=== PATIENT | female | born 1985 | race Two or more races ===

== ENCOUNTER 2018-01-18 09:39 | Emergency (ER) | payer BC ==
[2018-01-18 09:47] VITALS: BP 99/55; PULSE 82; TEMP 98.6; BMI 23.0
[2018-01-18] MEDS ORDERED: DEXAMETHASONE LIQUID 0.5 MG/5 ML 240 ML BULK BOTTLE PO ONE (10:22)
[2018-01-18] MEDS ORDERED: IBUPROFEN 600 MG TABLET (FP) PO ONE (10:22)
--- NOTE | 2018-01-18 10:28 | PDOC ---
History of Present Illness - General Chief Complaint: Sore Throat Stated Complaint: PAIN/ THROAT, EAR Time Seen by Provider: 01/18/18 10:13 History Source: Patient Exam Limitations: No Limitations - History of Present Illness Initial Comments: 01/18/18 10:23 32-year-old woman without significant past medical history presents emergency Department with sore throat, painful swallowing, tender submandibular lymph nodes and left earache for the past 3-4 days. Patient states she has felt warm but denies having fevers. Patient denies headaches, dizziness, chest pain, shortness of breath, cough, abdominal pain, nausea, vomiting. Past History - Past Medical History Allergies/Adverse Reactions: Allergies Allergy/AdvReac Type Severity Reaction Status Date / Time No Known Allergies Allergy Verified 01/18/18 09:44 Home Medications: Ambulatory Orders Oxycodone HCl/Acetaminophen [Percocet 5-325 mg Tablet -] 1 - 2 tab PO Q4H #20 tablet 09/25/15 One Daily Tablet 1 tab PO DAILY 09/25/15 Amoxicillin - [Amoxicillin 500mg Capsule -] 500 mg PO BID #20 capsule 01/18/18 Anemia: No Asthma: No Cancer: No Cardiac Disorders: No CVA: No COPD: No CHF: No DVT: No Dementia: No Diabetes: No GI Disorders: No Disorders: No HTN: No Hypercholesterolemia: No Liver Disease: No Seizures: No Thyroid Disease: No - Surgical History Abdominal Surgery: Yes (gastric sleeve) Appendectomy: No Cardiac Surgery: No Cholecystectomy: No Lung Surgery: No Neurologic Surgery: No Orthopedic Surgery: No - Reproductive History (#): 5 Para: 2 Spontaneous : 2 - Immunization History Immunization Up to Date: Yes - Suicide/Smoking/Psychosocial Hx Smoking Status: No Smoking History: Never smoked Have you smoked in the past 12 months: No Number of Cigarettes Smoked Daily: 0 Information on smoking cessation initiated: No Hx Alcohol Use: No Drug/Substance Use Hx: No Substance Use Type: None Hx Substance Use Treatment: No Review of Systems - Review of Systems Able to Perform ROS?: Yes Is the patient limited Maltese proficient: No Constitutional: No: Symptoms Reported HEENTM: Yes: See HPI Respiratory: No: Symptoms reported Cardiac (ROS): No: Symptoms Reported ABD/GI: No: Symptoms Reported : No: Symptoms Reported Musculoskeletal: No: Symptoms Reported Integumentary: No: Symptoms Reported Neurological: No: Symptoms reported *Physical Exam - Vital Signs Last Vital Signs Temp Pulse Resp BP Pulse Ox 98.6 F 82 18 99/55 100 01/18/18 09:44 01/18/18 09:44 01/18/18 09:44 01/18/18 09:44 01/18/18 09:44 - Physical Exam General Appearance: Yes: Appropriately Dressed. No: Apparent Distress HEENT: positive: Tonsillar Exudate, Tonsillar Erythema, TM Bulging (left), TM Erythema (left) Neck: positive: Trachea midline, Lymphadenopathy (R). negative: Stridor Respiratory/Chest: positive: Lungs Clear, Normal Breath Sounds. negative: Respiratory Distress, Accessory Muscle Use Cardiovascular: positive: Regular Rhythm, Regular Rate, S1, S2. negative: Edema , Murmur Neurologic: positive: Alert, Normal Response Medical Decision Making - Medical Decision Making 01/18/18 10:29 A/P: 32-year-old woman with 3-4 days of sore throat, earache, painful lymph nodes Right TM erythematous and bulging Right tonsillar erythema with exudates present Right-sided tender anterior cervical lymphadenopathy present Lungs clear to auscultation bilaterally Symptoms are consistent with a pharyngitis most likely streptococcal. Rapid strep testing, Motrin, Decadron Given physical exam and symptomatology I will treat the patient has if she has presumed streptococcal infection at this time. Patient verbalizes understanding of discharge instructions was satisfied with the care provided. *DC/Admit/Observation/Transfer Diagnosis at time of Disposition: Pharyngitis Qualifiers: Pharyngitis/tonsillitis etiology: unspecified etiology Qualified Code(s): J02.9 - Acute pharyngitis, unspecified - Discharge Dispostion Disposition: HOME Condition at time of disposition: Stable Decision to Admit order: No - Prescriptions Prescriptions: Amoxicillin - [Amoxicillin 500mg Capsule -] 500 mg PO BID #20 capsule - Referrals Referrals: Jameel Hunter [Primary Care Provider] - - Patient Instructions Additional Instructions: You are being treated for presumed strep throat. Take amoxicillin as prescribed. Salt water garggles. Throw away your toothbrush in 3 days and start using a new toothbrush. No sharing of drinks, utensils or toothbrushes. Take Motrin as directed by roll grinder operator's instructions. Return to ED for worsening fevers, worsening sore throat, chest pain, shortness of breath or any other concerns. - Post Discharge Activity
== END 2018-01-18 10:33 | disposition home or self-care (01) ==
LOC: JERFT 09:39
DX: J02.9 Acute pharyngitis, unspecified (principal); H66.91 Otitis media, unspecified, right ear
CPT/HCPCS: 87070; 87430; 99281-25

== ENCOUNTER 2018-09-03 10:17 | Emergency (ER) | payer BC ==
--- NOTE | 2018-09-03 10:33 | PDOC ---
History of Present Illness - General Chief Complaint: Lightheaded Stated Complaint: DIZZINESS/WEAKNESS Time Seen by Provider: 09/03/18 10:30 - History of Present Illness Initial Comments: 09/03/18 10:35 Ms. Bullard is a 33 yo female w/ pmh of gastric bypass who presents for evaluation of dizziness and syncope. Patient reports she got up early this AM to heat up milk for sick child; became dizzy and sat down / lost consciousness. Patient quickly returned to consciousness and vomited x1 (NBNB). Patient returned to normal after approximately 10 minutes. Patient reports "dizzy spells " which happen approximately 2x/month for the past 2 years following her gastric bypass. Patient was evaluated by neurology for this however does not remember the name and reports she was never given a diagnosis. No other complaints at this time. The patient denies chest pain, shortness of breath, and headache. Denies fever, chills, diarrhea and constipation. Denies dysuria, frequency, urgency and hematuria. Past History - Past Medical History Allergies/Adverse Reactions: Allergies Allergy/AdvReac Type Severity Reaction Status Date / Time No Known Allergies Allergy Verified 01/18/18 09:44 Home Medications: Ambulatory Orders NK [No Known Home Medication] 09/03/18 Anemia: No Asthma: No Cancer: No Cardiac Disorders: No CVA: No COPD: No CHF: No DVT: No Dementia: No Diabetes: No GI Disorders: No Disorders: No HTN: No Hypercholesterolemia: No Liver Disease: No Seizures: No Thyroid Disease: No - Surgical History Abdominal Surgery: Yes (gastric sleeve) Appendectomy: No Cardiac Surgery: No Cholecystectomy: No Lung Surgery: No Neurologic Surgery: No Orthopedic Surgery: No - Reproductive History (#): 5 Para: 2 Spontaneous : 2 - Immunization History Immunization Up to Date: Yes - Suicide/Smoking/Psychosocial Hx Smoking Status: No Smoking History: Never smoked Have you smoked in the past 12 months: No Number of Cigarettes Smoked Daily: 0 Information on smoking cessation initiated: No Hx Alcohol Use: No Drug/Substance Use Hx: No Substance Use Type: None Hx Substance Use Treatment: No Review of Systems - Review of Systems Comments:: 09/03/18 10:35 GENERAL/CONSTITUTIONAL: No fever or chills. No weakness. HEAD, EYES, EARS, NOSE AND THROAT: No change in vision. No ear pain or discharge. No sore throat. CARDIOVASCULAR: No chest pain or shortness of breath RESPIRATORY: No cough, wheezing, or hemoptysis. GASTROINTESTINAL: +N/V episode as described. No diarrhea or constipation. GENITOURINARY: No dysuria, frequency, or change in urination. MUSCULOSKELETAL: No joint or muscle swelling or pain. No neck or back pain. SKIN: No rash NEUROLOGIC: +Dizziness / syncopal episode as described. No headache, vertigo, or change in strength/sensation. ENDOCRINE: No increased thirst. No abnormal weight change HEMATOLOGIC/LYMPHATIC: No anemia, easy bleeding, or history of blood clots. ALLERGIC/IMMUNOLOGIC: No hives or skin allergy. *Physical Exam - Vital Signs Last Vital Signs Temp Pulse Resp BP Pulse Ox 98.4 F 78 18 104/68 100 09/03/18 10:20 09/03/18 10:20 09/03/18 10:20 09/03/18 10:20 09/03/18 10:20 - Physical Exam Comments: 09/03/18 10:35 GENERAL: Awake, alert, and fully oriented, in no acute distress HEAD: No signs of trauma, normocephalic, atraumatic EYES: PERRLA, EOMI, sclera anicteric, conjunctiva clear ENT: Auricles normal inspection, hearing grossly normal, nares patent, oropharynx clear without exudates. Moist mucosa NECK: Normal ROM, supple, no lymphadenopathy, JVD, or masses LUNGS: No distress, speaks full sentences, clear to auscultation bilaterally HEART: Regular rate and rhythm, normal S1 and S2, no murmurs, rubs or gallops, peripheral pulses normal and equal bilaterally. ABDOMEN: Soft, nontender, normoactive bowel sounds. No guarding, no rebound. No masses EXTREMITIES: Normal inspection, Normal range of motion, no edema. No clubbing or cyanosis. NEUROLOGICAL: Cranial nerves II through XII grossly intact. Normal speech, normal gait, no focal sensorimotor deficits SKIN: Warm, Dry, normal turgor, no rashes or lesions noted. Moderate Sedation - Procedure Monitoring Vital Signs: Procedure Monitoring Vital Signs Temperature 98.4 F 09/03/18 10:20 Pulse Rate 78 09/03/18 10:20 Respiratory Rate 18 09/03/18 10:20 Blood Pressure 104/68 09/03/18 10:20 O2 Sat by Pulse Oximetry (%) 100 09/03/18 10:20 ED Treatment Course - LABORATORY CBC & Chemistry Diagram: 09/03/18 11:35 09/03/18 11:35 Medical Decision Making - Medical Decision Making 09/03/18 11:45 Ms. Bullard is a 33 yo female w/ pmh as described who presents for evaluation of syncope. Patient workup started for evaluation of cause of symptoms. Patient receiving 1L NS upon arrival via EMS. CBC/CMP/UA/HCG/EKG/Cardiac labs sent for evaluation. 09/03/18 12:51 Labs grossly wnl as below. No concern for acute process at this time. Discharging to home w/ instructions to f/u w/ PCP for further evaluation. Laboratory Results - last 24 hr 09/03/18 09/03/18 09/03/18 10:18 11:35 11:35 WBC 3.7 L RBC 4.15 Hgb 12.5 Hct 36.1 MCV 86.9 MCH 30.0 MCHC 34.6 RDW 13.3 Plt Count 240 MPV 8.2 Absolute Neuts (auto) 1.6 Neutrophils % 43.3 D Lymphocytes % 44.5 H D Monocytes % 9.5 Eosinophils % 2.2 Basophils % 0.5 Nucleated RBC % 0 Sodium 140 Potassium 4.4 Chloride 108 H Carbon Dioxide 25 Anion Gap 6 L BUN 17 Creatinine 0.8 Creat Clearance w eGFR > 60 Random Glucose 78 Calcium 8.2 L Total Bilirubin 1.0 AST 14 L ALT 13 Alkaline Phosphatase 39 L Creatine Kinase 81 Troponin I < 0.02 Total Protein 6.6 Albumin 3.4 TSH 0.85 Urine Color Rosita Urine Appearance Slcloudy Urine pH 6.0 Ur Specific [place] 1.025 Urine Protein 1+ H Urine Glucose (UA) Negative Urine Ketones Negative Urine Blood Negative Urine Nitrite Negative Urine Bilirubin Negative Urine Urobilinogen Negative Ur Leukocyte Esterase Negative Urine WBC (Auto) 3 Urine RBC (Auto) 4 Ur Epithelial Cells Rare Urine Bacteria Rare Hyaline Casts 6 Urine Mucus Many Urine HCG, Qual Negative *DC/Admit/Observation/Transfer Diagnosis at time of Disposition: Syncope Qualifiers: Syncope type: unspecified Qualified Code(s): R55 - Syncope and collapse - Discharge Dispostion Disposition: HOME Condition at time of disposition: Stable - Referrals - Patient Instructions Printed Discharge Instructions: DI for Syncope in Adults (Fainting) Additional Instructions: You were evaluated today in the ER for your syncopal episode. We performed laboratory evaluation and an EKG to rule out potential causes. No concerning findings were found at this time. Please follow-up with primary care provider later this week for further evaluation. Return to ER if any further dizziness, fever, chills, pain, or other concerning symptoms. - Post Discharge Activity
[2018-09-03 10:35] VITALS: BMI 24.0
--- NOTE | 2018-09-03 10:38 | PDOC ---
Attending Attestation - Resident Resident Name: Jean Claude Pollack - ED Attending Attestation I have performed the following: I have examined & evaluated the patient, The case was reviewed & discussed with the resident, I agree w/resident's findings & plan, Exceptions are as noted - HPI HPI: 33 yo F history gastric bypass, prior episodes of dizziness presents s/p syncopal event, witnessed by . Denies cp, SOB, leg swelling. No recent change in PO intake. She has a sick child at home. - Physicial Exam PE: GENERAL: Awake, alert, and fully oriented, in no acute distress. Mild pallor. HEAD: No signs of trauma EYES: PERRLA, EOMI, sclera anicteric, conjunctiva clear ENT: Auricles normal inspection, hearing grossly normal, nares patent, oropharynx clear without exudates. Moist mucosa NECK: Normal ROM, supple, no lymphadenopathy, JVD, or masses LUNGS: Breath sounds equal, clear to auscultation bilaterally. No wheezes, and no crackles HEART: Regular rate and rhythm, normal S1 and S2, no murmurs, rubs or gallops ABDOMEN: Soft, nontender, normoactive bowel sounds. No guarding, no rebound. No masses EXTREMITIES: Normal range of motion, no edema. No clubbing or cyanosis. No cords, erythema, or tenderness NEUROLOGICAL: Cranial nerves II through XII grossly intact. Normal speech, normal gait. Motor and sensation intact SKIN: Warm, Dry, normal turgor, no rashes or lesions noted. - Medical Decision Making Pt is s/p syncopal event at home. Exam is wnl, EKG shows sinus pati at 56 bpm. Will check labs to r/o anemia, electrolyte abnormality. Heart Score/ECG Review - ECG Impressions Comment:: EKG read 11:59- Sinus pati 56 bpm, no acute ST/T changes
[2018-09-03 10:48] LABS: HCG,QUALITATIVE URINE Negative
[2018-09-03 10:53] LABS: URINE APPEARANCE SLCLOUDY; URINE BILIRUBIN NEGATIVE (<2.0 mg/dL); URINE COLOR AMBER; URINE GLUCOSE (UA) NEGATIVE (NEGATIVE); URINE KETONE NEGATIVE (NEGATIVE); URINE LEUK ESTERASE NEGATIVE (NEGATIVE); URINE NITRITE NEGATIVE (NEGATIVE); URINE PROTEIN 1+ (NEGATIVE); URINE UROBILINOGEN NEGATIVE mg/dL (0.2-1.0)
[2018-09-03 10:58] LABS: EPI CELLS RARE /HPF (FEW); URINE BACTERIA RARE /hpf (NONE SEEN); URINE HYALINE CAST 6 /lpf; URINE MUCUS MANY
[2018-09-03 11:57] LABS: BASO % 0.5 % (0-2.0); EOS % 2.2 % (0-4.5); HEMATOCRIT 36.1 % (32.4-45.2); HEMOGLOBIN 12.5 GM/dL (10.7-15.3); LYMPH % 44.5 % (8-40); MCHC 34.6 g/dl (32.0-36.0); MEAN CELL VOLUME 86.9 fl (80-96); MEAN PLT VOLUME 8.2 fl (7.5-11.1); MONO % 9.5 % (3.8-10.2); NEUT % 43.3 % (42.8-82.8); PLATELET COUNT 240 K/MM3 (134-434); RBC 4.15 M/mm3 (3.60-5.2); RDW 13.3 % (11.6-15.6); WHITE BLOOD COUNT 3.7 K/mm3 (4.0-10.0)
[2018-09-03 12:50] LABS: ALBUMIN 3.4 g/dl (3.4-5.0); ALK PHOS 39 U/L (45-117); ANION GAP 6 MMOL/L (8-16); BLOOD UREA NITROGEN 17 mg/dL (7-18); CALCIUM 8.2 mg/dL (8.5-10.1); CHLORIDE 108 mmol/L (98-107); CO2 25 mmol/L (21-32); CREATININE 0.8 mg/dL (0.55-1.3); GLUCOSE,RANDOM 78 mg/dL (74-106); POTASSIUM 4.4 mmol/L (3.5-5.1); SGOT/AST 14 U/L (15-37); SGPT/ALT 13 U/L (13-61); SODIUM 140 mmol/L (136-145); TOT PROT 6.6 g/dl (6.4-8.2)
[2018-09-03 13:05] VITALS: BP 105/54; PULSE 69; TEMP 97.8
--- NOTE | 2018-09-04 08:33 | EKG ---
Test Reason : Blood Pressure : / mmHG Vent. Rate : 056 BPM Atrial Rate : 056 BPM P-R Int : 154 ms QRS Dur : 074 ms QT Int : 428 ms P-R-T Axes : 026 034 027 degrees QTc Int : 413 ms SINUS BRADYCARDIA OTHERWISE NORMAL ECG NO PREVIOUS ECGS AVAILABLE Confirmed by QUETA CHAWLA, HONORIO ([id number]) on 09/04/2018 8:32:51 AM Referred By: Confirmed By:HONORIO BIRCH MD
== END 2018-09-03 13:05 | disposition home or self-care (01) ==
LOC: JER 10:17
DX: R55 Syncope and collapse (principal); R00.1 Bradycardia, unspecified; Z98.84 Bariatric surgery status
CPT/HCPCS: 36415; 80053; 81003; 81015; 82550; 84443; 84484; 84703; 85025; 93005; 93010; 99284-25

== ENCOUNTER 2019-08-28 00:36 | Inpatient (IN) | payer BC, OTHER ==
--- NOTE | 2019-08-28 01:10 | PDOC ---
History of Present Illness - General Chief Complaint: Vaginal Bleeding Stated Complaint: VAGINAL BLEEDING - History of Present Illness Initial Comments: The pt is a 34F , LMP 07/14/19 presents for evaluation of 4 hours of pelvic pain with associated 3 days of vaginal bleeding. The pt endorses passage of clots. She states that she was seen in the OBGYN office Wednesday where she had a positive test. That same day she noted beginning of spotting. The pelvic pain is constant, cramping/sharp, non-radiating, worse with movement and touch and not alleviated by anything she can identify. Has not tried anything for pain Endorses dizziness, generalized weakness Denies fevers/chills, chest pain, trouble breathing, vomiting, diarrhea, or changes in sensation. 08/28/19 01:04 Past History - Past Medical History Allergies/Adverse Reactions: Allergies Allergy/AdvReac Type Severity Reaction Status Date / Time No Known Allergies Allergy Verified 08/28/19 00:56 Home Medications: Ambulatory Orders NK [No Known Home Medication] 09/03/18 Anemia: No Asthma: No Cancer: No Cardiac Disorders: No CVA: No COPD: No CHF: No DVT: No Dementia: No Diabetes: No GI Disorders: No Disorders: No HTN: No Hypercholesterolemia: No Liver Disease: No Seizures: No Thyroid Disease: No - Surgical History Abdominal Surgery: Yes (gastric sleeve) Appendectomy: No Cardiac Surgery: No Cholecystectomy: No Lung Surgery: No Neurologic Surgery: No Orthopedic Surgery: No - Reproductive History (#): 5 Para: 2 Spontaneous : 2 - Immunization History Immunization Up to Date: Yes - Psycho Social/Smoking Cessation Hx Smoking Status: No Smoking History: Never smoked Have you smoked in the past 12 months: No Number of Cigarettes Smoked Daily: 0 Hx Alcohol Use: No Drug/Substance Use Hx: No Substance Use Type: None Hx Substance Use Treatment: No Review of Systems - Review of Systems Able to Perform ROS?: Yes Comments:: GENERAL/CONSTITUTIONAL: No fever or chills HEAD, EYES, EARS, NOSE AND THROAT: No change in vision. No change in hearing. No sore throat CARDIOVASCULAR: No chest pain or shortness of breath RESPIRATORY: Denies cough, hemoptysis GASTROINTESTINAL: No nausea, vomiting, diarrhea or constipation GENITOURINARY: No dysuria, frequency, or change in urination MUSCULOSKELETAL: No joint or muscle swelling or pain. No neck or back pain SKIN: No rash NEUROLOGIC: No headache, loss of consciousness, or change in strength/sensation ENDOCRINE: No increased thirst. No abnormal weight change HEMATOLOGIC/LYMPHATIC: No anemia, easy bleeding, or history of blood clots ALLERGIC/IMMUNOLOGIC: No hives or skin allergy 08/28/19 02:52 Is the patient limited Swedish proficient: No *Physical Exam - Vital Signs Last Vital Signs Temp Pulse Resp BP Pulse Ox 97.9 F 114 H 20 104/66 100 08/28/19 00:40 08/28/19 00:40 08/28/19 00:40 08/28/19 00:40 08/28/19 00:40 - Physical Exam GENERAL: Awake, alert, and oriented to person/place/time, in moderate distress/ appears uncomfortable HEAD: No signs of trauma, normocephalic, atraumatic EYES: PERRLA, EOMI, sclera anicteric, conjunctiva clear ENT: Hearing grossly normal, nares patent, oropharynx clear without exudates. Moist mucosa LUNGS: No distress, speaks in full sentences, clear to auscultation bilaterally HEART: Regular rate and rhythm, normal S1 and S2, no murmurs appreciated, peripheral pulses normal and equal bilaterally ABDOMEN: Soft, suprapubic TTP w/ guarding; normoactive bowel sounds EXTREMITIES: Normal inspection, Normal range of motion, no edema. No clubbing or cyanosis NEUROLOGICAL: Cranial nerves II through XII grossly intact. Normal speech, normal gait, no focal sensorimotor deficits SKIN: Warm, Dry 08/28/19 02:54 ED Treatment Course - LABORATORY CBC & Chemistry Diagram: 08/28/19 02:00 08/28/19 02:00 - RADIOLOGY Radiology Studies Ordered: Category Date Time Status TRANSVAGINAL US PREG [US] Stat Ultrasound 08/28/19 01:03 Ordered Radiograph Interpretation: THIS IS A PRELIMINARY REPORT FROM IMAGING DENTAL ASSISTANT MEDICAL ASSISTANT DATE OF SERVICE: 2019-08-28 01:05:32 EXAM: TRANSVAGINAL US PREG and pelvic duplex FINDINGS: Ultrasound :Uterus is anteverted and measures 8.3.centimeters in length. Endometrium is 5 mm in thickness. There is no IUP. At this beta-hCG level at least a gestational sac should be identified and therefore this does not represent a normal early . The right ovary measures 5.3centimeters in length and appears normal. The left ovary measures 4.3centimeters in length and contains a 2.1 cm cyst. There is a moderate amount of complex fluid, possibly representing blood clot. Pelvic duplex: There is normal arterial and venous flow in both ovaries. IMPRESSION: No IUP with moderate amount of complex free fluid, possibly blood clot, which is highly suspicious for ruptured ectopic , although miscarriage should also be considered. 08/28/19 03:24 Medical Decision Making - Medical Decision Making The pt is a 34F , LMP 07/14/19, who presents for evaluation of 4 hours of lower abdominal pain with 3 days of vaginal bleeding Pt w/ positive test on 3 days ago ED Course Morphine 4mg IV once, Ofirmev 1g IV once, and 2L IV given in ED Labs sent Case discussed w/ Dr. Shaw -TVUS w/ intra-abdominal free fluid -Pt to go to OR tonight No leukocytosis Hgb 12.2 Lytes unremarkable No SILVIA LFTs unremarkable B-hCG 2740 Pt consented for blood transfusion Dispo: OR 08/28/19 02:39 Discharge - Discharge Information Problems reviewed: Yes Clinical Impression/Diagnosis: Free fluid in pelvis, Vaginal bleeding in patient at less than 20 weeks gestation Condition: Guarded - Admission Yes - Follow up/Referral - Patient Discharge Instructions - Post Discharge Activity
[2019-08-28 01:13] VITALS: BMI 24.9
[2019-08-28] MEDS ORDERED: SODIUM CHLORIDE 0.9% 500 ML INFUS.BAG IV ONE ×2 (01:46→02:39)
[2019-08-28] MEDS ORDERED: ACETAMINOPHEN 1000 MG/100 ML VIAL (NON FORMULARY) IVPB ONE (01:46)
[2019-08-28] MEDS ORDERED: morphine CARPU-JECT 4 MG/1 ML DISP.SYRIN IVPUSH ONE (01:46)
[2019-08-28 02:16] LABS: BASO % 0.4 % (0-2.0); EOS % 0.7 % (0-4.5); HEMOGLOBIN 12.2 GM/dL (10.7-15.3); LYMPH % 21.3 % (8-40); MCH 28.7 pg (25.7-33.7); MCHC 32.9 g/dl (32.0-36.0); MEAN CELL VOLUME 87.1 fl (80-96); MEAN PLT VOLUME 8.4 fl (7.5-11.1); MONO % 5.9 % (3.8-10.2); NEUT % 71.7 % (42.8-82.8); PLATELET COUNT 330 K/MM3 (134-434); RBC 4.25 M/mm3 (3.60-5.2); RDW 13.9 % (11.6-15.6); WHITE BLOOD COUNT 6.3 K/mm3 (4.0-10.0)
--- NOTE | 2019-08-28 02:25 | HP ---
Satellite [facility] - Chief Complaint Chief Complaint: Ruptured ectopic History Source: Patient Limitations to Obtaining History: No Limitations - Past Medical History Allergies/Adverse Reactions: Allergies Allergy/AdvReac Type Severity Reaction Status Date / Time No Known Allergies Allergy Verified 08/28/19 00:56 Reproductive: Yes: Ectopic ...LMP: 05/06/14 ...: Yes ...: 7 ...Para: 3 Additional Medical History: Section x 3 - Current Medications Current Medications: Home Medications Medication Instructions Recorded Ibuprofen [Motrin -] 600 mg PO QID #28 tablet 08/28/19 Satellite Physical Exam - Physical Examination Vital Signs: Vital Signs Period Temp Pulse Resp BP Sys/Jennings Pulse Ox Last 24 Hr 97.9 F 74-114 20-22 84-104/56-66 100-100 General Appearance: Well Nourished, Well Developed Lung: Clear to auscultation Heart: Regular rate & rhythm Breasts: Soft Abdomen: Other (+ rebound) Pelvic Exam: Within normal limits External Genitalia, Within normal limits Uterus, Other Vagina (blood in vagia), Other Cervix (+ CMT), Other [place]a ( left mass) Neurological: Intact, Alert, Oriented Satellite Impression/Plan - Impression/Plan Impression: Ruptured ectopic Operative Procedure: Laparoscopic possible salpingectomy Date to be Performed: 08/28/19
[2019-08-28 02:39] LABS: INR 1.04 (0.83-1.09); PROTHROMBIN TIME (PATIENT) 12.3 SEC (9.7-13.0)
[2019-08-28 02:40] LABS: BILIRUBIN,TOTAL 0.3 mg/dL (0.2-1); BLOOD UREA NITROGEN 20.5 mg/dL (7-18); CALCIUM 8.4 mg/dL (8.5-10.1); CREATININE 0.9 mg/dL (0.55-1.3); TOT PROT 7.4 g/dl (6.4-8.2)
--- NOTE | 2019-08-28 02:54 | PDOC ---
Attending Attestation - Resident Resident Name: Jonathan Carrillo - ED Attending Attestation I have performed the following: I have examined & evaluated the patient, The case was reviewed & discussed with the resident, I agree w/resident's findings & plan, Exceptions are as noted - HPI HPI: 08/28/19 02:57 G7, P3 LMP 1122 approximately 6 weeks by dates has been followed with her OB/ DESIGN MAINTENANCE ENGINEER with serial betas no visualized IUP on most recent ultrasound presents to the ED with vaginal bleeding abdominal pain sent for stat ultrasound to rule out ectopic - Physicial Exam PE: 08/28/19 02:57 Vitals: Triage Vital signs reviewed General Appearance: Moderate distress Cardiac: Regular rate and rhythym, no murmurs, no rubs, no gallops, Lungs: Clear to auscultation bilateral, good air movement bilaterally, Abdomen: Soft with diffuse lower tenderness slight rebound Extremities: Full range of motion to all extremities, no cyanosis, clubbing, or edema Skin: Warm and dry, no rashes or lesions, no rash, no petechiae Psych: Normal mood, normal affect - Medical Decision Making 08/28/19 02:58 History examination suspicious for threatened miscarriage risk ectopic Ultrasound findings concerning for ectopic Interpreted by me Case discussed with patient's SALES STORE CHECKER who is in house will take patient to OR for surgical management 2 units PRBCs ordered Patient hemodynamically stable for transfer at this time
[2019-08-28] MEDS ORDERED: ONDANSETRON 4 MG/2 ML VIAL IVPUSH PRN ×2 (03:42→08:51)
[2019-08-28] MEDS ORDERED: LACTATED RINGERS SOLUTION 1,000 ML IV SCH (03:45)
[2019-08-28] MEDS ORDERED: ceFAZolin SODIUM 1 GM VIAL IVPB ONE (04:10)
[2019-08-28] MEDS ORDERED: BUPIVACAINE HCL/PF 0.5% (5 MG/ML) 30 ML VIAL IJ ONE (04:56)
[2019-08-28] MEDS ORDERED: MIDAZOLAM HCL 2 MG/2 ML SINGLE DOSE VIAL IVPUSH ONE (05:21)
[2019-08-28] MEDS ORDERED: MIDAZOLAM HCL 2 MG/2 ML SINGLE DOSE VIAL IVPUSH PRN (05:21)
[2019-08-28] MEDS: ELECTROLYTE-148 SOLN 1,000 ML IV SCH ×3 (06:29→22:20)
[2019-08-28] MEDS: oxyCODONE HCL 5 MG TABLET PO PRN ×3 (07:00→22:18)
[2019-08-28] MEDS: ACETAMINOPHEN 325 MG TABLET (FP) PO PRN ×4 (07:02→22:19)
--- NOTE | 2019-08-28 07:07 | OP ---
Operative Note - Note: Operative Date: 08/28/19 Pre-Operative Diagnosis: Ectopic Operation: Left laparoscopic salpingectomy Findings: large left ectopic Post-Operative Diagnosis: Same as Pre-op Surgeon: Catrina Shaw Sample Coordinator: Cruzito Carter Anesthesia: General Estimated Blood Loss (mls): 500 Operative Report Dictated: Yes
[2019-08-28 08:21] LABS: BASO % 0.1 % (0-2.0); HEMATOCRIT 27.4 % (32.4-45.2); MCH 28.5 pg (25.7-33.7); MCHC 32.9 g/dl (32.0-36.0); MEAN CELL VOLUME 86.5 fl (80-96); MEAN PLT VOLUME 8.2 fl (7.5-11.1); MONO % 1.7 % (3.8-10.2); NEUT % 92.2 % (42.8-82.8); PLATELET COUNT 216 K/MM3 (134-434); RBC 3.17 M/mm3 (3.60-5.2); RDW 13.5 % (11.6-15.6); WHITE BLOOD COUNT 8.8 K/mm3 (4.0-10.0)
[2019-08-28] MEDS ORDERED: MORPHINE SULFATE 2 MG/ML VIAL IVPUSH PRN (08:39)
--- NOTE | 2019-08-28 08:49 | PN ---
Progress Note (short form) - Note Progress Note: POD 0, s/p Left laparoscopic salpingectomy for ectopic Pt seen and examined. Case finished around 4am, reports she is still having significant pain, just received pain meds. Has not been oob, voided or had PO yet. Denies cp/sob, n/v/d. Vital Signs Temp 97.5 F L 08/28/19 06:44 Pulse 95 H 08/28/19 06:44 Resp 22 H 08/28/19 06:44 BP 117/74 08/28/19 06:44 Pulse Ox 100 08/28/19 06:52 Intake & Output 08/27/19 08/27/19 08/28/19 11:59 23:59 11:59 Intake Total 1650 Output Total 800 Balance 850 Weight 145 lb Intake: IV 1650 Output: Urine 300 Estimated Blood Loss 500 Other: Height 5 ft 4 in Body Mass Index (BMI) 24.9 Weight Measurement Method Est/Stated by Patient CBC, BMP 08/28/19 07:33 08/28/19 02:00 Gen: awake, sleepy, family at bedside Resp: unlabored on RA Abdo: soft, ++ttp pelvic area appropriate to status, dressings c/d/i A/P: 34 y/o F w/ no significant PMHx admitted with pelvic pain, found to have large left ectopic , now POD 0, s/p Left laparoscopic salpingectomy. -Pain control -TOV -OOB with assist -advance diet as tolerated -Zofran for nausea -Feosol ordered when pt tolerating PO
--- NOTE | 2019-08-28 09:52 | PN ---
Progress Note (short form) - Note Progress Note: 34 F s/p GA for salpingectomy. pain controlled with IV meds. no comps. good result of anesthetic care
[2019-08-28 10:22] LABS: ANISOCYTOSIS 0; MACROCYTOSIS 0; PLATELET ESTIMATE NORMAL
[2019-08-28] MEDS: FERROUS SO4 325 MG TABLET (FP) PO SCH (11:48)
[2019-08-28] MEDS: IBUPROFEN 400 MG TABLET (FP) PO PRN ×3 (13:31→22:19)
[2019-08-28] MEDS: SIMETHICONE 80 MG TAB.CHEW (FP) PO PRN ×2 (16:13→22:19)
--- NOTE | 2019-08-28 17:17 | OP ---
DATE OF OPERATION: 08/28/2019 PREOPERATIVE DIAGNOSIS: Ectopic . OPERATION: Left laparoscopic salpingectomy. SURGEON: Catrina Shaw MD [employer]/MECHANIC: WINDY Lopez. unavailable. ANESTHESIA: General. ANESTHESIOLOGIST: Patti Leone MD FINDINGS: A large 4-cm left ectopic in the tube with blood coming from the tube. PROCEDURE: Patient was taken to the operating room, placed in dorsal lithotomy position, prepped and draped in the usual sterile fashion. A time-out was performed in accordance with hospital regulation. Cummins catheter was then inserted into the bladder. Attention was then drawn to the umbilicus where a 5-mm umbilical incision was made. Veress needle was inserted into the cavity. Approximately 3-4 L of CO2 was insufflated in the cavity. Veress needle was then removed, and a 5-mm trocar was then inserted. An 11-cm left incision was made, and an 11-mm trocar was inserted. A 5-mm trocar was inserted on the right side after scalpel had been used to make a 5-mm incision. Trocars were inserted on direct visualization. Upon entry, visualization of the abdomen revealed a large amount of clots and blood. Approximately 500 mL of blood was in the belly. Suction of the clots was done. A large left ectopic was seen in the midportion of the tube. Graspers were then used to grasp the fallopian end of the tube, and LigaSure was then used to coagulate and cut, and the left fallopian tube was removed. Portion of the tube was left at the isthmic area. Large amount of clots were removed. Endobag was inserted, and clots were inserted in the Endobag as well as the ectopic . The Endobag was removed with the clots in the left ectopic. Hemostasis was achieved. Roberto-Jenni was then used to repair the fascia using 0 Vicryl suture. The fascia was then closed in 2 locations. Subcuticular incision was done using 4-0 Biosyn suture in subcuticular fashion. The wound was washed and dressed. Patient tolerated procedure well. Estimated blood loss was 500 mL. Félix [id number]
[2019-08-29] MEDS: ACETAMINOPHEN 325 MG TABLET (FP) PO PRN ×2 (01:39→12:13)
[2019-08-29] MEDS: SIMETHICONE 80 MG TAB.CHEW (FP) PO PRN ×2 (01:39→12:12)
[2019-08-29] MEDS: oxyCODONE HCL 5 MG TABLET PO PRN (01:40)
[2019-08-29] MEDS: ELECTROLYTE-148 SOLN 1,000 ML IV SCH ×2 (02:57→07:20)
[2019-08-29 08:23] LABS: BASO % 0.3 % (0-2.0); EOS % 0.6 % (0-4.5); HEMOGLOBIN 7.6 GM/dL (10.7-15.3); LYMPH % 39.2 % (8-40); MCH 28.6 pg (25.7-33.7); MCHC 33.1 g/dl (32.0-36.0); MEAN CELL VOLUME 86.5 fl (80-96); MEAN PLT VOLUME 8.3 fl (7.5-11.1); MONO % 7.6 % (3.8-10.2); NEUT % 52.3 % (42.8-82.8); PLATELET COUNT 191 K/MM3 (134-434); RBC 2.66 M/mm3 (3.60-5.2); RDW 13.6 % (11.6-15.6); WHITE BLOOD COUNT 4.8 K/mm3 (4.0-10.0)
--- NOTE | 2019-08-29 08:49 | PN ---
Progress Note (short form) - Note Progress Note: 34yo F s/p Lap salpingectomy for ectopic . This morning pt is complaining of feeling dizzy and is hypotensive. Pt complaining of some mild LLQ abd pain around port site incision. Denies fever, chills, n/v. Last Vital Signs Temp Pulse Resp BP Pulse Ox 98.0 F 76 18 73/35 L 100 08/29/19 06:00 08/29/19 06:00 08/29/19 06:00 08/29/19 06:00 08/28/19 06:52 CBC, BMP 08/29/19 07:35 08/28/19 02:00 PE: Gen: A&O X3 Resp: breathing comfortably Abd: soft, nondistended, mild LLQ tenderness, incisions are clean with no erythema or discharge. Ext: no edema Problem List - Problems (1) Ectopic Assessment/Plan: Plan -pt will get a liter bolus of saline, Hgb dropped from 9-7, will reevaluate for symptoms and consider blood transfusion -pain control Pt discussed with Dr. Shaw who agrees with plan Code(s): O00.90 - UNSPECIFIED ECTOPIC WITHOUT INTRAUTERINE
[2019-08-29] MEDS: FERROUS SO4 325 MG TABLET (FP) PO SCH (09:59)
--- NOTE | 2019-08-29 10:20 | PN ---
Progress Note (short form) - Note Progress Note: RE-EVALUATION Just got into bed after ambulating to bathroom unassisted. Per morning round note, patient c/o feeling dizzy this morning upon standing. Hypotension at bedside. RN started 1L IVF --> only received 325mL. Currently asyptomatic. BP 107/61, HR 74 Wants to go home. Called and spoke with Dr. Shaw and made her aware. Wants to finish the liter of IVF. Re-check vitals and if no change can be discharged home.
[2019-08-29] MEDS ORDERED: SODIUM CHLORIDE 500 ML IV STA (10:21)
[2019-08-29] MEDS: IBUPROFEN 400 MG TABLET (FP) PO PRN (12:12)
--- NOTE | 2019-08-29 13:29 | PATH ---
Surgical Pathology Report Patient Name: IRINA BONILLA Med. Rec. 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 Specimen(s) Received LEFT ECTOPIC Clinical History Ruptured ectopic Final Diagnosis ECTOPIC , LEFT, LAPAROSCOPIC SALPINGECTOMY: CHORIONIC VILLI IN A BACKGROUND OF HEMORRHAGE PRESENT WITHIN THE FALLOPIAN TUBE, CONSISTENT WITH ECTOPIC . Electronically Signed Irina Soler M.D. Gross Description Received in formalin labeled "left ectopic ," is a 6.5 cm in length fimbriated, dilated fallopian tube. The outer surface is mora-pink with focal adhesions. Sectioning reveals a dilated lumen containing red-brown blood clot. Separately received within the same container is an 8.0 x 6.0 x 1.7 cm aggregate of red-brown blood clot. No definitive villous tissue or somatic tissue is identified. [facility] sections are submitted in 4 cassettes as follows: 1-fimbria; 2-4-cross sections of fallopian tube. DL/08/28/2019 saudi/08/28/2019
[2019-08-29 14:22] VITALS: BP 93/51; PULSE 90; TEMP 97.7
== END 2019-08-29 17:00 | disposition home or self-care (01) | DRG 819 ==
LOC: JER 00:36 → JASU-SURG 02:12 → J3W 02:22 → JASU-SURG 06:17 → J3W 06:18
PROVIDERS: ADMIT Obstetrics & Gynecology; ATTEND Obstetrics & Gynecology
PROC: 0UT64ZZ Resection of Left Fallopian Tube, Percutaneous Endoscopic Approach (ICD-10-PCS; 2019-08-28)
PROC: 10T24ZZ Resection of Products of Conception, Ectopic, Percutaneous Endoscopic Approach (ICD-10-PCS; principal; 2019-08-28 02:58)
DX: O00.80 Other ectopic pregnancy without intrauterine pregnancy (principal); I95.9 Hypotension, unspecified
CPT/HCPCS: 36415; 76817-TC; 80053; 82962; 84702; 85025; 85610; 85730; 86850; 86900; 86901; 86922; 88305-TC; 94010; 94760; 99283-25; J0131

== ENCOUNTER 2023-03-08 05:26 | Day surgery (SDC) | payer OTHER ==
[2023-03-04 17:28] VITALS: BMI 29.2
[~2023-03-08 05:26] MED LIST: BUPIVACAINE HCL/PF 0.5% (5MG/ML) 10 ML VIAL IJ ONE
[2023-03-08] MEDS ORDERED: BUPIVACAINE HCL/PF 0.5% (5MG/ML) 10 ML VIAL ONE (07:11)
[2023-03-08] MEDS ORDERED: ROCURONIUM BROMIDE 50 MG/5 ML SYRINGE ONE (07:51)
[2023-03-08] MEDS ORDERED: LIDOCAINE HCL/PF 2% SDV 5ML VIAL ONE (07:51)
[2023-03-08] MEDS ORDERED: DEXAMETHASONE SOD PHOSPHATE 4 MG/1 ML VIAL ONE (07:51)
[2023-03-08] MEDS ORDERED: ONDANSETRON 4 MG/2 ML VIAL ONE (07:51)
[2023-03-08] MEDS ORDERED: KETOROLAC TROMETHAMINE 30 MG/1 ML VIAL ONE (07:51)
[2023-03-08] MEDS ORDERED: PROPOFOL 20 ML ONE (07:51)
[2023-03-08] MEDS ORDERED: AMIODARONE HCL 150 MG/3 ML VIAL ONE (09:02)
[2023-03-08] MEDS ORDERED: GLYCOPYRROLATE 0.2 MG/1 ML VIAL ONE ×2 (09:02)
[2023-03-08] MEDS ORDERED: NEOSTIGMINE METHYLSULFATE 0.5 MG/1 ML - 10 ML MDV ONE (09:02)
[2023-03-08] MEDS ORDERED: oxyCODONE HCL 5 MG TABLET PO PRN (09:20)
[2023-03-08] MEDS ORDERED: ONDANSETRON 4 MG/2 ML VIAL IVPUSH PRN (09:20)
[2023-03-08] MEDS ORDERED: ACETAMINOPHEN 1000 MG/100 ML BAG IVPB ONE (09:23)
[2023-03-08] MEDS ORDERED: BUPIVACAINE 0.75% IN DEXTROSE/PF 2ML AMPULE NR ONE (09:26)
[2023-03-08] MEDS ORDERED: LACTATED RINGERS SOLUTION 1,000 ML IV SCH (09:30)
[2023-03-08] MEDS ORDERED: MIDAZOLAM HCL 2 MG/2 ML SINGLE DOSE VIAL ONE (09:48)
[2023-03-08] MEDS ORDERED: ACETAMINOPHEN INJECTION 100 ML IVPB ONE (10:07)
[2023-03-08 12:01] VITALS: RESP 20
[2023-03-08] MEDS ORDERED: oxyCODONE HCL 5 MG TABLET ONE ×2 (12:13→15:04)
[2023-03-08] MEDS ORDERED: oxyCODONE HCL 5 MG TABLET PO ONE ×2 (12:18→15:00)
[2023-03-08 14:51] VITALS: BP 117/66; PULSE 90; TEMP 98.2
== END 2023-03-08 15:24 | disposition home or self-care (01) ==
LOC: JASU-SURG 05:26
PROVIDERS: ATTEND Obstetrics & Gynecology
PROC: 0UB14ZZ Excision of Left Ovary, Percutaneous Endoscopic Approach (ICD-10-PCS; 2023-03-08)
PROC: 0UT74ZZ Resection of Bilateral Fallopian Tubes, Percutaneous Endoscopic Approach (ICD-10-PCS; principal; 2023-03-08 07:30)
DX: Z30.2 Encounter for sterilization (principal); N83.12 Corpus luteum cyst of left ovary; N94.89 Other specified conditions associated with female genital organs and menstrual cycle
CPT/HCPCS: 81025; 88302-TC; 88304-TC; 88305-TC; 94760